=== PATIENT | male | born 1995 | race Caucasian/White ===

== ENCOUNTER 2022-04-15 14:02 | Emergency (ER) | payer SELFPAY ==
[~2022-04-15] VITALS: Ht 167.6 cm; Wt 68.2 kg
[2022-04-15 14:22] VITALS: BP 142/93
--- NOTE | 2022-04-15 14:29 | NUR ---
PT TO NA[facility] SHELTON
[2022-04-15 16:06] LABS: BASOPHILS % (AUTO) 0.4 % (0.0-2.0); EOSINOPHILS % (AUTO) 0.2 % (0.0-4.0); HEMATOCRIT 46.8 % (36-52); HEMOGLOBIN 15.8 g/dL (12.0-18.0); LYMPHOCYTES # (AUTO) 1.4 K/uL (2.0-11.5); LYMPHOCYTES % (AUTO) 24.7 % (20.5-51.1); MEAN CORPUSCULAR HEMOGLOBIN 31 pg (27-31); MEAN CORPUSCULAR HGB CONC 34 g/dL (33-37); MEAN CORPUSCULAR VOLUME 90.4 fL (80-94); MONOCYTES # (AUTO) 0.5 K/uL (0.8-1.0); MONOCYTES % (AUTO) 8.8 % (1.7-9.3); NEUTROPHILS # (AUTO) 3.8 K/uL (1.8-7.7); NEUTROPHILS % (AUTO) 65.9 % (42.2-75.2); PLATELET COUNT (AUTO) 282 K/uL (140-450); RED BLOOD CELL COUNT(AUTO) 5.18 MIL/uL (4.20-6.10); RED CELL DISTRIBUTION WIDTH 12.9 % (11.6-13.7); WHITE BLOOD COUNT (AUTO) 5.8 K/uL (4.8-10.8)
[2022-04-15 16:32] LABS: ALBUMIN 4.2 g/dL (3.4-5.0); ANION GAP 10.3 (8-16); CARBON DIOXIDE 30.1 mmol/L (21-32); CREATININE 0.9 mg/dL (0.6-1.3); POTASSIUM 4.4 mmol/L (3.5-5.1); TOTAL BILIRUBIN 0.4 mg/dL (0.0-1.0)
--- NOTE | 2022-04-15 16:45 | NUR ---
26YO MALE PT C/O DIZZINESS , LIGHTHEADEDNESS AND CHEST PAIN. PT DENIES ALL THIS TIME. PT STATES HAD PRESSURED 4/10 CHEST PAIN YESTERDAY AFTERNOON. DENIES PHYSICAL ACTIVITY AT THE TIME OF OCCURRENCE. PT DENIES N/V/D OR FEVER. PT CURRENTLY STABLE AND AT REST. PT AAOX4, ALL VITALS WITHIN NORMAL RANGE, ALL NEEDS MET AT THIS TIME. NKA NHX
[2022-04-15 17:02] VITALS: BP 121/75
--- NOTE | 2022-04-15 17:30 | NUR ---
Patient discharged with v/s stable. Written and verbal after care instructions given and explained. Patient verbalized understanding. Ambulatory with steady gait. All questions addressed prior to discharge. Advised to follow up with PMD.
--- NOTE | 2022-04-15 17:31 | NUR ---
Chart checked and completed. The patient's care was reviewed and supervised by Jacinta Farris RN.
== END 2022-04-15 17:30 | disposition home or self-care (01) ==
LOC: MED 14:02
DX: R07.9 Chest pain, unspecified (principal); R42 Dizziness and giddiness; F17.200 Nicotine dependence, unspecified, uncomplicated; F12.90 Cannabis use, unspecified, uncomplicated
CPT/HCPCS: 36415; 71045; 80053; 85025; 93005; 99285